=== PATIENT | female | born 1955 | race African-American/Black ===

== ENCOUNTER 2023-04-07 19:38 | Inpatient (IN) | payer BC, MEDICAID ==
[~2023-04-07] VITALS: Ht 160 cm; Wt 56.7 kg
[~2023-04-07 19:38] MED LIST: APIX2.5T MT; ATOR20TA MT; DILT120C11 MT; METO25TA6 MT
[2023-04-07 19:44] VITALS: O2SAT 100
[2023-04-07] MEDS ORDERED: NITROGLYCERIN 0.4MG TABLET SL SL PRN (20:00)
[2023-04-07 20:29] LABS: HEMATOCRIT. 32.9 % (36.0-48.0); HEMOGLOBIN. 10.3 g/dL (12.0-16.0); MEAN CORPUSCULAR HEMOGLOBIN 22.5 pg (28.0-32.0); MEAN CORPUSCULAR HGB CONC 31.4 g/dL (31.0-37.0); MEAN CORPUSCULAR VOLUME 71.7 fL (81.0-99.0); MEAN PLATELET VOLUME 8.8 fl (7.4-10.4); PLATELET 262 x1000/uL (130-400); RED BLOOD CELL COUNT 4.59 mill/uL (4.2-5.4); RED CELL DISTRIBUTION WIDTH 31.4 % (11.6-14.6); WHITE BLOOD COUNT 5.8 x1000/uL (4.5-11.0)
[2023-04-07 20:31] LABS: DIFFERENTIAL COMMENT 1
[2023-04-07 20:41] LABS: PARTIAL THROMBOPLASTIN TIME 26.8 sec (23.4-31.0); PROTHROMBIN TIME 11.3 sec (9.6-11.0)
[2023-04-07 20:42] LABS: ACETAMINOPHEN < 2 ug/mL (10-30); ALANINE AMINOTRANSFERASE 33 IU/L (10-49); ALBUMIN 4.1 g/dL (3.2-4.8); ASPARTATE AMINOTRANSFERASE 26 IU/L (<34); BILIRUBIN TOTAL 0.3 mg/dL (0.1-1.0); CALCIUM 8.9 mg/dL (8.7-10.4); CARBON DIOXIDE 26 mEq/L (21-32); CHLORIDE 103 mEq/L (98-107); CREATININE 0.7 mg/dL (0.6-1.0); GLUCOSE 98 mg/dL (70-105); POTASSIUM 3.9 mEq/L (3.5-5.1); PROTEIN TOTAL 7.3 g/dL (6.0-8.3); SODIUM 136 mEq/L (136-145); TROPONIN I HIGH SENSITIVITY 19 ng/L (3.0-34); UREA NITROGEN BLOOD 14 mg/dL (9-23)
[2023-04-07 20:46] LABS: ETHANOL BLOOD < 10 mg/dL (<10)
[2023-04-07] MEDS: LORAZEPAM 2MG/ML INJ IV ONE ×2 (21:08→22:04)
[2023-04-07] MEDS: SODIUM CHLORIDE 0.9% 1,000 ML IV ONE (21:08)
[2023-04-07] MEDS: ASPIRIN 81MG TABLET PO ONE (21:08)
[2023-04-07 21:42] LABS: ANISOCYTOSIS 1+; HYPOCHROMASIA 1+; MICROCYTOSIS 1+; PLATELET ESTIMATE NORMAL
[2023-04-07] MEDS: DILTIAZEM HCL 5MG/ML 5ML VIAL IV ONE (21:52)
[2023-04-07 21:57] LABS: CLARITY URINE CLOUDY (CLEAR); COLOR URINE DARK YELLOW (YELLOW); GLUCOSE URINE NEGATIVE (NEGATIVE); KETONES URINE TRACE (NEGATIVE); LEUKOCYTE ESTERASE URINE 3+ (NEGATIVE); NITRITE URINE NEGATIVE (NEGATIVE); OCCULT BLOOD URINE NEGATIVE (NEGATIVE); PROTEIN URINE 1+ (NEGATIVE); SPECIFIC GRAVITY URINE 1.026 (1.005-1.030)
[2023-04-07 22:08] LABS: *AMPHETAMINES SCREEN URINE NEGATIVE (NEGATIVE); *BARBITURATES SCREEN URINE NEGATIVE (NEGATIVE); *BENZODIAZEPINES SCREEN URINE NEGATIVE (NEGATIVE); *COCAINE SCREEN URINE NEGATIVE (NEGATIVE); CANNABINOID URINE SCREEN PRESUMPTIVE POSITIVE (NEGATIVE); ECSTASY MDMA SCREEN URINE NEGATIVE (NEGATIVE); METHADONE URINE SCREEN Neg (NEGATIVE); OPIATES URINE SCREEN NEGATIVE (NEGATIVE); PHENCYCLIDINE URINE SCREEN NEGATIVE (NEGATIVE)
[2023-04-07 22:12] LABS: BACTERIA URINE 1+; SQUAMOUS EPITHELIAL CELL URINE 1+ /lpf (RARE/1+); TRICHOMONAS URINE 1+; WBC URINE TNTC /hpf (0-2)
[2023-04-08] MEDS: CEFTRIAXONE 1GM/50ML 50 ML IV ONE (00:13)
[2023-04-08 05:19] VITALS: BP 135/105; PULSE 146; RESP 17; TEMP 96
[2023-04-08 05:56] VITALS: BP 170/82; PULSE 125; RESP 20; TEMP 97.5
[2023-04-08 08:00] VITALS: BP 127/90; PULSE 115; RESP 18; TEMP 97.7
[2023-04-08] MEDS ORDERED: CLONIDINE 0.1MG TABLET PO PRN (10:30)
[2023-04-08] MEDS ORDERED: ONDANSETRON HCL 4MG/2ML INJ IV PRN (10:30)
[2023-04-08] MEDS ORDERED: ACETAMINOPHEN 325MG TABLET PO PRN (10:30)
[2023-04-08] MEDS: APIXABAN 5 MG TABLET PO SCH (10:54)
[2023-04-08] MEDS: SODIUM CHLORIDE 0.9% 1,000 ML IV SCH (10:55)
[2023-04-08] MEDS: METOPROLOL TARTRATE 25MG TABLET PO SCH (10:55)
[2023-04-08] MEDS: DILTIAZEM HCL 30MG TABLET PO SCH (12:00)
[2023-04-08] MEDS: METOPROLOL TARTRATE 25MG TABLET PO NR (14:15)
[2023-04-08 16:00] VITALS: BP 124/70; PULSE 123; RESP 18; TEMP 97.6
[2023-04-08 16:52] LABS: CREATINE KINASE 58 IU/L (34-145); CREATINE KINASE MB FRACTION 1.8 ng/mL (0.5-3.6); TROPONIN I HIGH SENSITIVITY 20 ng/L (3.0-34)
[2023-04-08 20:00] VITALS: BP 114/64; PULSE 112; RESP 20; TEMP 97.7
[2023-04-08] MEDS: ATORVASTATIN CALCIUM 20MG TABLET PO SCH (21:00)
[2023-04-08] MEDS: CEFTRIAXONE 1GM/50ML 50 ML IV SCH (21:35)
[2023-04-08] MEDS: METOPROLOL TARTRATE 50MG TABLET PO SCH (21:37)
[2023-04-09 00:30] VITALS: BP 149/77; PULSE 110; RESP 18; TEMP 96.9
[2023-04-09 01:28] LABS: CREATINE KINASE MB FRACTION 1.2 ng/mL (0.5-3.6)
[2023-04-09] MEDS ORDERED: DEXTROSE 50% WATER 50ML SYRINGE IV PRN (01:45)
[2023-04-09 04:00] VITALS: BP 122/71; PULSE 97; RESP 17; TEMP 97.1
[2023-04-09] MEDS: INSULIN LISPRO 100 UNITS/ML SUBCUT SCH (06:43)
[2023-04-09] MEDS: BLOOD SUGAR DIAGNOSTIC STRIP TEST SCH (06:43)
[2023-04-09 08:00] VITALS: BP 132/64; PULSE 90; RESP 18; TEMP 97.9
[2023-04-09 12:00] VITALS: BP 139/81; PULSE 68; RESP 18; TEMP 98.8
[2023-04-09 13:12] LABS: CALCIUM 8.1 mg/dL (8.7-10.4); CARBON DIOXIDE 22 mEq/L (21-32); CHLORIDE 106 mEq/L (98-107); CREATININE 0.7 mg/dL (0.6-1.0); GLUCOSE 65 mg/dL (70-105); POTASSIUM 4.1 mEq/L (3.5-5.1); SODIUM 133 mEq/L (136-145); UREA NITROGEN BLOOD 15 mg/dL (9-23)
[2023-04-09 16:00] VITALS: BP_SYST 117; BP_SYST 139; BP_DIAS 65; BP_DIAS 81; PULSE 66; PULSE 68; RESP 18; TEMP 98.6; TEMP 98.8
[2023-04-09 17:40] LABS: HEMATOCRIT. 31.4 % (36.0-48.0); HEMOGLOBIN. 9.9 g/dL (12.0-16.0); MEAN CORPUSCULAR HEMOGLOBIN 22.8 pg (28.0-32.0); MEAN CORPUSCULAR HGB CONC 31.5 g/dL (31.0-37.0); MEAN CORPUSCULAR VOLUME 72.4 fL (81.0-99.0); MEAN PLATELET VOLUME 9.3 fl (7.4-10.4); PLATELET 232 x1000/uL (130-400); RED BLOOD CELL COUNT 4.34 mill/uL (4.2-5.4); WHITE BLOOD COUNT 4.3 x1000/uL (4.5-11.0)
[2023-04-09 17:46] LABS: DIFFERENTIAL COMMENT 1
[2023-04-09 18:16] LABS: PLATELET ESTIMATE NORMAL
[2023-04-09 20:00] VITALS: BP 140/56; PULSE 63; RESP 18; TEMP 98.4
[2023-04-10] VITALS: BP 152/82; PULSE 65; RESP 18; TEMP 97.9
[2023-04-10 04:00] VITALS: BP 158/70; PULSE 64; RESP 18; TEMP 97.7
[2023-04-10 08:00] VITALS: BP 152/83; PULSE 89; RESP 18; TEMP 97.1
[2023-04-10 12:00] VITALS: BP 178/98; PULSE 66; RESP 18; TEMP 97
[2023-04-10 16:00] VITALS: BP 165/97; PULSE 124; RESP 18; TEMP 97.5
== END 2023-04-10 18:26 | disposition home or self-care (01) | DRG 308 ==
LOC: ER 19:38 → 8WST 04-08 01:00 → EDBEDREQTM 04-08 01:19 → EDBEDREQDT 04-08 01:19 → EDBEDREQ 04-08 01:19
PROVIDERS: ADMIT Internal Medicine; ATTEND Internal Medicine
DX: I48.91 Unspecified atrial fibrillation (principal); G93.41 Metabolic encephalopathy; I50.32 Chronic diastolic (congestive) heart failure; N39.0 Urinary tract infection, site not specified; Z59.00 Homelessness unspecified; I48.92 Unspecified atrial flutter; I47.10 Supraventricular tachycardia, unspecified; Z20.822 Contact with and (suspected) exposure to COVID-19; I11.0 Hypertensive heart disease with heart failure; D64.9 Anemia, unspecified; E11.9 Type 2 diabetes mellitus without complications; I35.0 Nonrheumatic aortic (valve) stenosis; G40.909 Epilepsy, unspecified, not intractable, without status epilepticus; F17.210 Nicotine dependence, cigarettes, uncomplicated; Z98.84 Bariatric surgery status; Z86.73 Personal history of transient ischemic attack (TIA), and cerebral infarction without residual deficits
CPT/HCPCS: 36415; 71045; 80048; 80053; 80305; 80307; 80320; 80329; 81003; 82550; 82553; 82962; 83036; 83605; 83880; 84145; 84484; 85025; 87426; 93005; 97161; 99291; J0696; J2060; J3490; J7030; G0480